=== PATIENT | female | born 1990 | race Caucasian/White ===

== ENCOUNTER → 2019-11-07 | Day surgery (SDC) | payer SELFPAY, OTHER ==
[~2019-11-07] MED LIST: BACITRACIN 50,000 UNIT VIAL ONE; BUPIVACAINE 0.25%/EPI 30ML SDV INJ ONE; CEFAZOLIN SOD 1 GM VIAL ONE; CEFAZOLIN SOD 1 GM/NS 50ML 100 ML IV ONE; CELEBREX100 MG PO; CYCLOBENZAPRINE PO; GENTAMICIN SULFATE 40 MG/ML 2 ML VIAL ONE; MINOCYCLINE HCL50 MG PO; NORCO 10-325 T1 EACH PO
[2019-11-07 14:25] VITALS: BP 116/79
--- NOTE | 2019-11-08 08:05 | Operative Report ---
DATE OF PROCEDURE: 11/07/2019 SURGEON: Onel Gunn MD PREOPERATIVE DIAGNOSIS: Bilateral breast hyperplasia. POSTOPERATIVE DIAGNOSIS: Bilateral breast hyperplasia. PROCEDURE: Bilateral augmentation mammoplasty with silicone gel implant. ANESTHESIA: General. ESTIMATED BLOOD LOSS: Minimal. COMPLICATIONS: None. DRAINS: None. IMPLANTS: Klaus Barber SRF 450 mL implants bilaterally. Right breast serial #[id number]. Left breast serial #[id number]. CONDITION: To recovery stable, extubated. POSTOPERATIVE PLAN: Discharged to home. PROCEDURE IN DETAIL: After the patient was brought to the OR, a time-out was performed. The chest was prepped and draped in sterile fashion. Preoperative antibiotics were given. SCDs were placed. The chest was prepped and draped in sterile fashion. I began by making a 4 cm incision in the inframammary crease and then dissecting down to the subcutaneous tissues with the Bovie cautery. I elevated the inferior portion of the breast off the pectoralis fascia from lateral to the medial exposing it. I then opened the pectoralis fascia laterally and entered the plane between the pectoralis major and minor. Under direct vision with the Bovie cautery, I developed this plane. I also used the Bovie cautery to carefully disinsert costal origin of the pectoralis major muscle. The sterile origin fibers were kept intact. Once the pocket has been created, I checked for hemostasis. I irrigated out the pocket with triple antibiotic solution. I cleaned the skin with Betadine. The implant package was opened just prior to use, it was also soaked in the dilute Betadine and triple antibiotic irrigation. I changed my gloves. I was the only person to handle the implant. It was inserted into the pocket without difficulty. I then closed the pocket with 3-0 Vicryl in the deep tissues followed by 4-0 Vicryl deep dermal suture and 4-0 Monocryl running subcuticular suture. The same technique was performed on the contralateral breast. There was excellent symmetry of size and shape of the breast. All counts were correct. The patient tolerated the procedure well. Onel Gunn MD SB/MODL /[id number]
== END | disposition home or self-care (01) ==
LOC: OR 09:48
PROVIDERS: ATTEND Specialist
DX: N64.82 Hypoplasia of breast (principal); N64.81 Ptosis of breast; Z01.812 Encounter for preprocedural laboratory examination; Z11.59 Encounter for screening for other viral diseases
CPT/HCPCS: 19325; 81025; 87635; J0690 ×2; J1580; U0002